=== PATIENT | male | born 1970 | race Caucasian/White ===

== ENCOUNTER 2020-01-13 20:14 | Inpatient (IN) | payer BC ==
[~2020-01-13] VITALS: Ht 175.3 cm; Wt 118.0 kg
[2020-01-13 20:32] LABS: BASO # 0.2 x10^3/uL (0.0-0.2); BASO % 1 % (0-3); EOS # 0.3 x10^3/uL (0.0-0.7); EOS % 2 % (0-3); HEMATOCRIT 41.5 % (39.0-53.0); HEMOGLOBIN 14.5 g/dL (13.0-17.5); LYMPH # 5.2 x10^3/uL (1.0-4.8); LYMPH % 31 % (24-48); MEAN CORPUSCULAR HEMOGLOBIN 33 pg (25-35); MEAN CORPUSCULAR HGB CONC 35 g/dL (31-37); MEAN CORPUSCULAR VOLUME 93 fL (79-100); MONO % 6 % (0-9); NEUT # 10.2 x10^3/uL (1.8-7.7); NEUT % 61 % (31-73); PLATELET COUNT 226 x10^3/uL (140-400); RED BLOOD COUNT 4.46 x10^6/uL (4.30-5.70); WHITE BLOOD COUNT 16.8 x10^3/uL (4.0-11.0)
--- NOTE | 2020-01-13 20:32 | EKG ---
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
[2020-01-13 20:42] LABS: CALCIUM 8.3 mg/dL (8.5-10.1); CREATININE 1.4 mg/dL (0.7-1.3); GFR 54.3; POTASSIUM 3.6 mmol/L (3.5-5.1)
[2020-01-13 20:43] LABS: BILIRUBIN,URINE NEGATIVE (NEG); CLARITY,URINE CLEAR; COLOR,URINE YELLOW; NITRITE,URINE NEGATIVE (NEG); PH,URINE 5.5 (<5.0-8.0); PROTEIN,URINE NEGATIVE (NEG-TRACE); UROBILINOGEN,URINE 0.2 mg/dL (0.2 mg/dL)
--- NOTE | 2020-01-13 20:46 | PHYS DOC ---
General Adult EDM: Chief Complaint: CHEST PAIN HPI: HPI: Patient is a 49 year old male who presents with complaint of chest discomfort that started at about 7 PM. Patient states that initially pain was a 5 out of 10 and radiated across his entire chest. He states the pain was like tightness. He states that initially he had some nausea associated with the chest pain but currently has no nausea. Patient was given 4 baby aspirin and 3 sublingual nitroglycerin by EMS and currently his pain is a 3 out of 10. Patient states that nothing worsened or improved the pain other than nitroglycerin.[] Review of Systems: Review of Systems: Constitutional: Denies fever or chills. [] Respiratory: Denies cough or shortness of breath. [] Cardiovascular: Complains of chest pain. [] GI: Denies abdominal pain, vomiting or diarrhea. [] Neurologic: Denies headache, focal weakness or sensory changes. [] A full 10 point review of systems has been reviewed and is otherwise negative. Heart Score: HEART Score for Chest Pain: HEART Score for Chest Pain Response (Comments) Value History Moderately Suspicious 1 ECG Normal 0 Age >45 - < 65 1 Risk Factors 1 or 2 Risk Factors 1 Troponin >3 x Normal Limit 2 Total 5 Risk Factors: Risk Factors: DM, Current or recent (<one month) smoker, HTN, HLP, family history of CAD, obesity. Risk Scores: Score 0 - 3: 2.5% MACE over next 6 weeks - Discharge Home Score 4 - 6: 20.3% MACE over next 6 weeks - Admit for Clinical Observation Score 7 - 10: 72.7% MACE over next 6 weeks - Early Invasive Strategies Allergies: Allergies: Allergies Coded Allergies Type Severity Reaction Last Updated Verified No Known Drug Allergies 01/13/20 No Physical Exam: PE: Constitutional: Well developed, well nourished, no acute distress, non-toxic appearance. [] HENT: Normocephalic, atraumatic, bilateral external ears normal, oropharynx moist, no oral exudates, nose normal. [] Eyes: PERRLA, EOMI, conjunctiva normal, no discharge. [] Neck: Normal range of motion, no tenderness, supple, no stridor. [] Cardiovascular: Regular rate and rhythm[] Lungs & Thorax: Bilateral breath sounds clear to auscultation [] Abdomen: Bowel sounds normal, soft, no tenderness. [] Skin: Warm, dry, no erythema, no rash. [] Extremities: No tenderness, no cyanosis, no clubbing, ROM intact, no edema. [] Neurologic: Alert and oriented X 3, no focal deficits noted. [] EKG: EKG: EKG demonstrates sinus rhythm with rate of 59.[] Radiology/Procedures: Radiology/Procedures: [] Impression: PROCEDURE: PORTABLE CHEST 1V Exam: Chest one view INDICATION: Chest pain TECHNIQUE: Frontal view of the chest Comparisons: None FINDINGS: The cardiomediastinal silhouette and pulmonary vessels are within normal limits. Strandy opacities at the lung bases bilaterally. No pleural effusion. IMPRESSION: Strandy bibasilar opacities may relate to atelectasis versus developing infectious process. Electronically signed by: Destiny Machado MD (01/13/2020 8:53 PM) [id number] Course & Med Decision Making: Course & Med Decision Making Pertinent Labs and Imaging studies reviewed. (See chart for details) Moved to room upon arrival was evaluated by ER medical staff after which an IV was established and blood work was drawn. Patient's initial cardiac workup had returned unremarkable with troponin less than 0.017. A 3 or repeat troponin was completed and did return elevated at 0.184. Findings reviewed with patient. Patient initiated on heparin protocol and patient admitted under hospitalist service with consultation of cardiology. Upon completion of initial workup, patient's chest pain noted to be 1 out of 10. Upon reviewing second troponin with patient, patient continues to be chest pain-free. Dragon Disclaimer: Dragon Disclaimer: This electronic medical record was generated, in whole or in part, using a voice recognition dictation system. Departure Departure Impression: Primary Impression: NSTEMI (non-ST elevated myocardial infarction) Disposition: ADMITTED INPATIENT Admitting Physician: COLEMAN Condition: IMPROVED BERRY CHIN Jr. DO Jan 13, 2020 20:46
[2020-01-13 20:48] LABS: ALBUMIN 3.4 g/dL (3.4-5.0); ALBUMIN/GLOBULIN RATIO 1.1 (1.0-1.7); MAGNESIUM 1.8 mg/dL (1.8-2.4); TOTAL BILIRUBIN 0.4 mg/dL (0.2-1.0); TOTAL PROTEIN 6.6 g/dL (6.4-8.2)
[2020-01-13 20:49] LABS: BACTERIA,URINE 0 /HPF (0-FEW); HYALINE CASTS, URINE FEW /HPF; RBC,URINE 0 /HPF (0-2); WBC,URINE 0 /HPF (0-4)
--- NOTE | 2020-01-13 20:56 | RAD ---
Exam: Chest one view INDICATION: Chest pain TECHNIQUE: Frontal view of the chest Comparisons: None FINDINGS: The cardiomediastinal silhouette and pulmonary vessels are within normal limits. Strandy opacities at the lung bases bilaterally. No pleural effusion. IMPRESSION: Strandy bibasilar opacities may relate to atelectasis versus developing infectious process. Electronically signed by: Destiny Machado MD (01/13/2020 8:53 PM) [id number]
[2020-01-14] VITALS (7 sets, daily range): BP systolic 97–131; BP diastolic 70–90
[2020-01-14] MEDS ORDERED: ONDANSETRON PF 4 MG/2 ML VIAL. IV PRN ×2 (00:30→13:00)
[2020-01-14] MEDS ORDERED: HEPARIN for IV BOLUS 10,000 UNIT/10 ML VIAL. IV PRN (00:30)
[2020-01-14] MEDS ORDERED: NITROGLYCERIN SUBLINGUAL 0.4 MG BOTTLE OF 25. SL PRN (00:30)
[2020-01-14] MEDS ORDERED: MORPHINE SULFATE 4 MG/ML VIAL. IV PRN (00:30)
[2020-01-14 00:32] LABS: BARBITURATES NEG (NEG); BENZODIAZEPINES NEG (NEG); CANNABINOIDS POS (NEG); COCAINE NEG (NEG); METHADONE NEG (NEG); OPIATES NEG (NEG); PHENCYCLIDINE NEG (NEG)
[2020-01-14 00:33] LABS: AMPHETAMINE/METHAMPHETAMINE NEG (NEG)
[2020-01-14] MEDS ORDERED: HEPARIN for IV BOLUS 10,000 UNIT/10 ML VIAL. IV ONE (00:45)
[2020-01-14 00:49] LABS: PROTHROMBIN TIME PATIENT 12.9 SEC (11.7-14.0)
[2020-01-14] MEDS: HEPARIN 25,000UTS/250ML PREMIX 250 ML IV PRN ×2 (01:25→20:38)
--- NOTE | 2020-01-14 05:47 | NUR ---
Pt was admitted to the unit from ER with dx of NSTEMI. Pt is A/Ox4, on RA, up adlib, SR/SB on telemetry and tolerating well. Pt described mediastinal chest pain and radiated across his chest. Pt had no c/o of pain at time of admission, heparin and NS ordered and initiated. Original troponin was negative, second 0.184, third 9.643. Pt is non symptomatic, however had run of vtach @0430, pt in bed resting. Will continue to monitor for status changes, bed in low/ locked position, call light within reach.
[2020-01-14] MEDS: IV NORMAL SALINE 1000ML BAG 1,000 ML IV SCH ×3 (06:12→21:31)
[2020-01-14] MEDS ORDERED: LEVO137T2 PO (07:13)
--- NOTE | 2020-01-14 08:56 | PDOC2 ---
CARDIOLOGY CONSULT NOTE CHIEF COMPLAINT: Chest pain HPI: Pleasant 49 y.o man presenting with chest pain since last night. He has been in his usual state of health over the last several weeks. 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 He was working on his car last night and had diffuse chest pain and called 911. He also had a headache. No associated nausea/dyspnea. No syncope. He has had some palpitations. Upon ER arrival BP and HR stable. Given asa and NTG. EKG not acute stemi but diffuse ST/T changes. Currently w/o chest pain but troponin uptrending to 18. PMHX: Hypothyroidism Hyperlipidemia SOCHX: +marijuana. lives with mother. Not . FAMHX: NC CURRENT MEDS: Current Medications Medications (Trade) Dose Ordered Sig/Alexandru Route PRN Reason Start Time Stop Time Status Last Admin Dose Admin Ondansetron HCl (Zofran) 4 mg PRN Q8HRS PRN IV NAUSEA/VOMITING 01/14/20 00:30 01/15/20 00:29 01/14/20 01:39 Sodium Chloride 1,000 ml @ 125 mls/hr Q8H IV 01/14/20 00:30 01/15/20 00:29 01/14/20 06:12 Heparin Sodium (Porcine) (Heparin Sodium) 4,000 unit 1X ONCE IV 01/14/20 00:45 01/14/20 00:46 DC 01/14/20 01:24 Heparin Sodium/ Dextrose 250 ml @ 0 mls/hr CONT PRN IV PER PROTOCOL 01/14/20 00:45 01/14/20 01:25 ALLERGIES: Allergies Coded Allergies Type Severity Reaction Last Updated Verified No Known Drug Allergies 01/13/20 No ROS: negative for 07/11 systems reviewed unless noted above in HPI PHYSICAL EXAM: Vital Signs/I&O: Vital Signs Date Time Temp Pulse Resp B/P (MAP) Pulse Ox O2 Delivery O2 Flow Rate FiO2 01/14/20 07:00 98.1 65 18 106/70 (82) 99 Room Air 98.1 I & O 01/13/20 01/13/20 01/14/20 15:00 23:00 07:00 Intake Total 68.8 ml Output Total 400 ml Balance -331.2 ml Physical Exam: GEN.: No apparent distress. Alert and oriented. HEENT: Head is normocephalic, atraumatic NECK: Supple. LUNGS: Clear to auscultation. HEART: RRR, S1, S2 present. Peripheral pulses intact ABDOMEN: Soft, nontender. Positive bowel sounds. EXTREMITIES: Without any cyanosis. NEUROLOGIC: Normal speech, normal tone PSYCHIATRIC: Normal affect, normal mood. SKIN: No ulcerations DIAGNOSTIC TESTING: EKG with SR non-specific st/t changes Trop 18 Otherwise labs wnl ASSESSMENT: 1. NSTEMI 2. Hyperlipidemia 3. Tobacco abuse PLAN: 1. Given symptoms I discussed r/b/a to cardiac cath with patient. He wishes to proceed with cath. Will arrange for this morning. Thanks GATO ALMONTE MD Jan 14, 2020 08:56
[2020-01-14] MEDS ORDERED: ACETAMINOPHEN 325 MG TABLET. PO PRN ×2 (09:00→13:00)
[2020-01-14] MEDS ORDERED: LIDOCAINE 1% PF 2 ML VIAL. ONE (09:44)
[2020-01-14] MEDS ORDERED: IODIXANOL 320 MG/ML 100 ML VIAL. ONE (09:44)
[2020-01-14] MEDS ORDERED: HEPARIN for ARTERIAL LINE 1,500 ML ONE (09:44)
[2020-01-14] MEDS ORDERED: fentaNYL PF VIAL 100 MCG/2 ML VIAL ONE (10:06)
[2020-01-14] MEDS ORDERED: MIDAZOLAM HCL/PF 2 MG/2 ML VIAL. ONE (10:06)
[2020-01-14] MEDS ORDERED: VERAPAMIL 5 MG/2 ML VIAL. ONE (10:07)
[2020-01-14] MEDS ORDERED: NITROGLYCERIN 200 MCG/2 ML SYRINGE FOR CATH/VASC LAB. ONE (10:07)
[2020-01-14] MEDS ORDERED: HEPARIN for IV BOLUS 10,000 UNIT/10 ML VIAL. ONE (10:07)
[2020-01-14] MEDS ORDERED: MIDAZOLAM HCL/PF 2 MG/2 ML VIAL. IV ONE (10:15)
[2020-01-14] MEDS ORDERED: NITROGLYCERIN 200 MCG/2 ML SYRINGE FOR CATH/VASC LAB. IART ONE (10:15)
[2020-01-14] MEDS ORDERED: fentaNYL PF VIAL 100 MCG/2 ML VIAL IV ONE (10:15)
[2020-01-14] MEDS ORDERED: VERAPAMIL 5 MG/2 ML VIAL. IART ONE (10:15)
[2020-01-14] MEDS ORDERED: IODIXANOL 320 MG/ML 100 ML VIAL. IART ONE (10:15)
[2020-01-14] MEDS ORDERED: HEPARIN for IV BOLUS 10,000 UNIT/10 ML VIAL. IART ONE (10:15)
[2020-01-14] MEDS ORDERED: LIDOCAINE 1% PF 2 ML VIAL. INJ ONE (10:15)
[2020-01-14] MEDS ORDERED: ONDANSETRON PF 4 MG/2 ML VIAL. ONE (10:20)
[2020-01-14] MEDS ORDERED: TIROFIBAN 5MG -0.9% NS 100 ML IV ONE ×2 (11:08→11:20)
[2020-01-14] MEDS: TIROFIBAN 5MG -0.9% NS 100 ML IV PRN ×3 (11:15→20:39)
--- NOTE | 2020-01-14 12:15 | NUR ---
[facility]. Transfer team contacted at [phone], spoke with Samantha. Awaits Dr. Keene's order to transfer patient.
--- NOTE | 2020-01-14 12:42 | PDOC1 ---
History and Physical Date of Admission Date of Admission DATE: 01/14/20 TIME: 12:41 Identification/Chief Complaint Chief Complaint SEEN IN ER WITH UNSTABLE ANGINA, NSTEMI , 49 year old male who presents with complaint of chest discomfort that started at about 7 PM. Patient states that initially pain was a 5 out of 10 and radiated across his entire chest. He states the pain was like tightness. He states that initially he had some nausea associated with the chest pain but currently has no nausea. Patient was given 4 baby aspirin and 3 sublingual nitroglycerin, cath today C/W MULTI-VESSEL CAD Past Medical History Cardiovascular: Hyperlipidemia Past Surgical History Past Surgical History: Appendectomy Family History Family History: High Cholestrol, Hypertension Social History Smoke: <1 pack per day ALCOHOL: occassional Drugs: None Current Problem List Problem List Problems Medical Problems: (1) NSTEMI (non-ST elevated myocardial infarction) Status: Acute Current Medications Current Medications Current Medications Ondansetron HCl (Zofran) 4 mg PRN Q8HRS PRN IV NAUSEA/VOMITING Last administered on 01/14/20at 01:39; Start 01/14/20 at 00:30; Stop 01/15/20 at 00:29 Morphine Sulfate (Morphine Sulfate) 4 mg PRN Q2HR PRN IV PAIN; Start 01/14/20 at 00:30; Stop 01/15/20 at 00:29 Sodium Chloride 1,000 ml @ 125 mls/hr Q8H IV Last administered on 01/14/20at 06:12; Start 01/14/20 at 00:30; Stop 01/15/20 at 00:29 Nitroglycerin (Nitrostat) 0.4 mg PRN Q5MIN PRN SL CHEST PAIN; Start 01/14/20 at 00:30; Stop 01/15/20 at 00:29 Heparin Sodium (Porcine) (Heparin Sodium) 4,000 unit 1X ONCE IV Last administered on 01/14/20at 01:24; Start 01/14/20 at 00:45; Stop 01/14/20 at 00:46; Status DC Heparin Sodium/ Dextrose 250 ml @ 0 mls/hr CONT PRN IV PER PROTOCOL Last administered on 01/14/20at 01:25; Start 01/14/20 at 00:45 Heparin Sodium (Porcine) (Heparin Sodium) 2,750 unit PRN Q6HRS PRN IV FOR UFH LEVEL LESS THAN 0.2; Start 01/14/20 at 00:30 Atorvastatin Calcium (Lipitor) 40 mg QHS PO ; Start 01/14/20 at 21:00 Acetaminophen (Tylenol) 325 mg PRN Q6HRS PRN PO MILD PAIN / TEMP Last administered on 01/14/20at 09:03; Start 01/14/20 at 09:00 Iodixanol (Visipaque 320) 100 ml STK-MED ONCE .ROUTE ; Start 01/14/20 at 09:44; Stop 01/14/20 at 09:45; Status DC Lidocaine HCl (Xylocaine-Mpf 1% 2ml Vial) 2 ml STK-MED ONCE .ROUTE ; Start 01/14/20 at 09:44; Stop 01/14/20 at 09:45; Status DC Heparin Sodium/ Sodium Chloride 1,500 ml @ As Directed STK-MED ONCE .ROUTE ; Start 01/14/20 at 09:44; Stop 01/14/20 at 09:45; Status DC Fentanyl Citrate (Fentanyl 2ml Vial) 100 mcg STK-MED ONCE .ROUTE ; Start 01/14/20 at 10:06; Stop 01/14/20 at 10:07; Status DC Midazolam HCl (Versed) 2 mg STK-MED ONCE .ROUTE ; Start 01/14/20 at 10:06; Stop 01/14/20 at 10:07; Status DC Heparin Sodium (Porcine) (Heparin Sodium) 10,000 unit STK-MED ONCE .ROUTE ; Start 01/14/20 at 10:07; Stop 01/14/20 at 10:07; Status DC Verapamil HCl (Verapamil) 5 mg STK-MED ONCE .ROUTE ; Start 01/14/20 at 10:07; Stop 01/14/20 at 10:08; Status DC Nitroglycerin (Nitroglycerin) 200 mcg STK-MED ONCE .ROUTE ; Start 01/14/20 at 10:07; Stop 01/14/20 at 10:08; Status DC Nitroglycerin (Nitroglycerin) 200 mcg 1X ONCE IART Last administered on 01/14/20at 10:15; Start 01/14/20 at 10:15; Stop 01/14/20 at 10:17; Status DC Verapamil HCl (Verapamil) 2.5 mg 1X ONCE IART Last administered on 01/14/20at 10:15; Start 01/14/20 at 10:15; Stop 01/14/20 at 10:17; Status DC Heparin Sodium (Porcine) (Heparin Sodium) 2,500 unit 1X ONCE IART Last administered on 01/14/20at 10:15; Start 01/14/20 at 10:15; Stop 01/14/20 at 10:17; Status DC Heparin Sodium/ Sodium Chloride (HEPARIN for ARTERIAL LINE FLUSH) 1,000 unit 1X ONCE IART Last administered on 01/14/20at 10:15; Start 01/14/20 at 10:15; Stop 01/14/20 at 10:17; Status DC Heparin Sodium/ Sodium Chloride (HEPARIN for ARTERIAL LINE FLUSH) 1,000 unit 1X ONCE IART Last administered on 01/14/20at 10:15; Start 01/14/20 at 10:15; Stop 01/14/20 at 10:17; Status DC Midazolam HCl (Versed) 2 mg 1X ONCE IV Last administered on 01/14/20at 10:15; Start 01/14/20 at 10:15; Stop 01/14/20 at 10:17; Status DC Fentanyl Citrate (Fentanyl 2ml Vial) 100 mcg 1X ONCE IV Last administered on 01/14/20at 10:15; Start 01/14/20 at 10:15; Stop 01/14/20 at 10:17; Status DC Iodixanol (Visipaque 320) 100 ml 1X ONCE IART Last administered on 01/14/20at 10:15; Start 01/14/20 at 10:15; Stop 01/14/20 at 10:17; Status DC Lidocaine HCl (Xylocaine-Mpf 1% 2ml Vial) 2 ml 1X ONCE INJ Last administered on 01/14/20at 10:15; Start 01/14/20 at 10:15; Stop 01/14/20 at 10:17; Status DC Ondansetron HCl (Zofran) 4 mg STK-MED ONCE .ROUTE ; Start 01/14/20 at 10:20; Stop 01/14/20 at 10:20; Status DC Tirofiban/Sodium Chloride 100 ml @ 0 mls/hr CONT PRN IV PER PROTOCOL Last administered on 01/14/20at 11:15; Start 01/14/20 at 11:15; Stop 01/15/20 at 05:14 Tirofiban/Sodium Chloride 100 ml @ As Directed STK-MED ONCE IV ; Start 01/14/20 at 11:08; Stop 01/14/20 at 11:09; Status DC Tirofiban/Sodium Chloride 100 ml @ As Directed STK-MED ONCE IV ; Start 01/14/20 at 11:20; Stop 01/14/20 at 11:21; Status DC Active Scripts Active Reported Synthroid (Levothyroxine Sodium) 137 Mcg Tablet 1 Tab PO HS Allergies Allergies: Coded Allergies: No Known Drug Allergies (Unverified , 01/13/20) ROS Review of System 14 PT ROS OTHERWISE NEG General: No: Chills, Night Sweats, Fatigue, Malaise, Appetite, Other PSYCHOLOGICAL ROS: YES: Anxiety; No: Behavioral Disorder, Concentration difficultie, Decreased libido, Depression, Disorientation, Hallucinations, Hostility, Irritablity, Memory difficulties, Mood Swings, Obsessive thoughts, Physical abuse, Sexual abuse, Sleep disturbances, Suicidal ideation, Other Eyes: No Blurry vision, No Decreased vision, No Double vision, No Dry eyes, No Excessive tearing, No Eye Pain, No Itchy Eyes, No Loss of vision, No Photophobia, No Scotomata, No Uses contacts, No Uses glasses, No Other HEENT: No: Heacaches, Visual Changes, Hearing change, Nasal congestion, Nasal discharge, Oral lesions, Sinus pain, Sore Throat, Epistaxis, Sneezing, Snoring, Tinnitus, Vertigo, Vocal changes, Other ALLERGY AND IMMUNOLOGY: No: Hives, Insect Bite Sensitivity, Itchy/Watery Eyes, Nasal Congestion, Post Nasal Drip, Seasonal Allergies, Other Hematological and Lymphatic: No: Bleeding Problems, Blood Clots, Blood Transfusions, Brusing, Night Sweats, Pallor, Swollen Lymph Nodes, Other Respiratory: YES: Shortness of breath, SOB with excertion; No: Cough, Hemoptysis, Orthopnea, Pleuritic Pain, Sputum Changes, Stridor, Tachypnea, Wheezing, Other Cardiovascular: yes Chest Pain Genitourinary: No Dysuria, No Frequency, No Incontinence, No Hematuria, No Retention, No Discharge, No Urgency, No Pain, No Flank Pain, No Other, No , No , No , No , No , No , No Musculoskeletal: No Gait Disturbance, No Joint Pain, No Joint Stiffness, No Joint Swelling, No Muscle Pain, No Muscular Weakness, No Pain In:, No Swelling In:, No Other Neurological: No Behavorial Changes, No Bowel/Bladder ControlChng, No Confusion, No Dizziness, No Gait Disturbance, No Headaches, No Impaired Coord/balance, No Memory Loss, No Numbness/Tingling, No Seizures, No Speech Problems, No Tremors, No Visual Changes, No Weakness, No Other Skin: No Dry Skin, No Eczema, No Hair Changes, No Lumps, No Mole Changes, No Mottling, No Nail Changes, No Pruritus, No Rash, No Skin Lesion Changes, No Other, No Acne Physical Exam Physical Exam Physical Exam: PE: Constitutional: Well developed, well nourished, no acute distress, non-toxic appearance. [] HENT: Normocephalic, atraumatic, bilateral external ears normal, oropharynx moist, no oral exudates, nose normal. [] Eyes: PERRLA, EOMI, conjunctiva normal, no discharge. [] Neck: Normal range of motion, no tenderness, supple, no stridor. [] Cardiovascular: Regular rate and rhythm[] Lungs & Thorax: Bilateral breath sounds clear to auscultation [] Abdomen: Bowel sounds normal, soft, no tenderness. [] Skin: Warm, dry, no erythema, no rash. [] Extremities: No tenderness, no cyanosis, no clubbing, ROM intact, no edema. [] Neurologic: Alert and oriented X 3, no focal deficits noted. [] General: Alert, Oriented X3, Cooperative, No acute distress HEENT: Atraumatic, PERRLA, EOMI, Mucous membr. moist/pink Lungs: Clear to auscultation, Normal air movement Heart: RRR Abdomen: Normal bowel sounds, Soft, No tenderness, No hepatosplenomegaly Rectal Exam: not examined PELVIC: Examination not indicated Extremities: No cyanosis Neuro: Normal speech, Sensation intact, Cranial nerves 3-12 NL Psych/Mental Status: Mental status NL, Mood NL Vitals Vitals Vital Signs Date Time Temp Pulse Resp B/P (MAP) Pulse Ox O2 Delivery O2 Flow Rate FiO2 01/14/20 11:25 69 14 96 Room Air 01/14/20 10:15 2.0 01/14/20 07:00 98.1 106/70 (82) 98.1 Labs Labs Laboratory Tests Test 01/13/20 20:25 01/13/20 20:32 01/13/20 23:09 01/14/20 03:35 White Blood Count 16.8 x10^3/uL (4.0-11.0) Red Blood Count 4.46 x10^6/uL (4.30-5.70) Hemoglobin 14.5 g/dL (13.0-17.5) Hematocrit 41.5 % (39.0-53.0) Mean Corpuscular Volume 93 fL (79-100) Mean Corpuscular Hemoglobin 33 pg (25-35) Mean Corpuscular Hemoglobin Concent 35 g/dL (31-37) Red Cell Distribution Width 14.0 % (11.5-14.5) Platelet Count 226 x10^3/uL (140-400) Neutrophils (%) (Auto) 61 % (31-73) Lymphocytes (%) (Auto) 31 % (24-48) Monocytes (%) (Auto) 6 % (0-9) Eosinophils (%) (Auto) 2 % (0-3) Basophils (%) (Auto) 1 % (0-3) Neutrophils # (Auto) 10.2 x10^3/uL (1.8-7.7) Lymphocytes # (Auto) 5.2 x10^3/uL (1.0-4.8) Monocytes # (Auto) 1.0 x10^3/uL (0.0-1.1) Eosinophils # (Auto) 0.3 x10^3/uL (0.0-0.7) Basophils # (Auto) 0.2 x10^3/uL (0.0-0.2) Prothrombin Time 12.9 SEC (11.7-14.0) Prothromb Time International Ratio 1.0 (0.8-1.1) Activated Partial Thromboplast Time 30 SEC (24-38) Sodium Level 138 mmol/L (136-145) Potassium Level 3.6 mmol/L (3.5-5.1) Chloride Level 104 mmol/L (98-107) Carbon Dioxide Level 26 mmol/L (21-32) Anion Gap 8 (6-14) Blood Urea Nitrogen 13 mg/dL (8-26) Creatinine 1.4 mg/dL (0.7-1.3) Estimated GFR (Cockcroft-Gault) 54.3 BUN/Creatinine Ratio 9 (6-20) Glucose Level 199 mg/dL (70-99) Calcium Level 8.3 mg/dL (8.5-10.1) Magnesium Level 1.8 mg/dL (1.8-2.4) Total Bilirubin 0.4 mg/dL (0.2-1.0) Aspartate Amino Transf (AST/SGOT) 29 U/L (15-37) Alanine Aminotransferase (ALT/SGPT) 34 U/L (16-63) Alkaline Phosphatase 73 U/L (46-116) Troponin I Quantitative < 0.017 ng/mL (0.000-0.055) 0.184 ng/mL (0.000-0.055) 9.643 ng/mL (0.000-0.055) NP-Gdk-Z-Type Natriuretic Peptide 65 pg/mL (0-124) Total Protein 6.6 g/dL (6.4-8.2) Albumin 3.4 g/dL (3.4-5.0) Albumin/Globulin Ratio 1.1 (1.0-1.7) Urine Collection Type Unknown Urine Color Yellow Urine Clarity Clear Urine pH 5.5 (<5.0-8.0) Urine Specific [place] 1.020 (1.000-1.030) Urine Protein Negative mg/dL (NEG-TRACE) Urine Glucose (UA) Negative mg/dL (NEG) Urine Ketones (Stick) Negative mg/dL (NEG) Urine Blood Negative (NEG) Urine Nitrite Negative (NEG) Urine Bilirubin Negative (NEG) Urine Urobilinogen Dipstick 0.2 mg/dL (0.2 mg/dL) Urine Leukocyte Esterase Negative (NEG) Urine RBC 0 /HPF (0-2) Urine WBC 0 /HPF (0-4) Urine Bacteria 0 /HPF (0-FEW) Urine Hyaline Casts Few /HPF Urine Mucus Marked /LPF Urine Opiates Screen Neg (NEG) Urine Methadone Screen Neg (NEG) Urine Barbiturates Neg (NEG) Urine Phencyclidine Screen Neg (NEG) Urine Amphetamine/Methamphetamine Neg (NEG) Urine Benzodiazepines Screen Neg (NEG) Urine Cocaine Screen Neg (NEG) Urine Cannabinoids Screen Pos (NEG) Urine Ethyl Alcohol Neg (NEG) Test 01/14/20 07:20 Heparin Anti-Xa Act, Unfractionated 0.43 IU/mL (0.30-0.70) Troponin I Quantitative 18.022 ng/mL (0.000-0.055) Laboratory Tests Test 01/13/20 20:25 01/13/20 20:32 01/13/20 23:09 01/14/20 03:35 White Blood Count 16.8 x10^3/uL (4.0-11.0) Red Blood Count 4.46 x10^6/uL (4.30-5.70) Hemoglobin 14.5 g/dL (13.0-17.5) Hematocrit 41.5 % (39.0-53.0) Mean Corpuscular Volume 93 fL (79-100) Mean Corpuscular Hemoglobin 33 pg (25-35) Mean Corpuscular Hemoglobin Concent 35 g/dL (31-37) Red Cell Distribution Width 14.0 % (11.5-14.5) Platelet Count 226 x10^3/uL (140-400) Neutrophils (%) (Auto) 61 % (31-73) Lymphocytes (%) (Auto) 31 % (24-48) Monocytes (%) (Auto) 6 % (0-9) Eosinophils (%) (Auto) 2 % (0-3) Basophils (%) (Auto) 1 % (0-3) Neutrophils # (Auto) 10.2 x10^3/uL (1.8-7.7) Lymphocytes # (Auto) 5.2 x10^3/uL (1.0-4.8) Monocytes # (Auto) 1.0 x10^3/uL (0.0-1.1) Eosinophils # (Auto) 0.3 x10^3/uL (0.0-0.7) Basophils # (Auto) 0.2 x10^3/uL (0.0-0.2) Prothrombin Time 12.9 SEC (11.7-14.0) Prothromb Time International Ratio 1.0 (0.8-1.1) Activated Partial Thromboplast Time 30 SEC (24-38) Sodium Level 138 mmol/L (136-145) Potassium Level 3.6 mmol/L (3.5-5.1) Chloride Level 104 mmol/L (98-107) Carbon Dioxide Level 26 mmol/L (21-32) Anion Gap 8 (6-14) Blood Urea Nitrogen 13 mg/dL (8-26) Creatinine 1.4 mg/dL (0.7-1.3) Estimated GFR (Cockcroft-Gault) 54.3 BUN/Creatinine Ratio 9 (6-20) Glucose Level 199 mg/dL (70-99) Calcium Level 8.3 mg/dL (8.5-10.1) Magnesium Level 1.8 mg/dL (1.8-2.4) Total Bilirubin 0.4 mg/dL (0.2-1.0) Aspartate Amino Transf (AST/SGOT) 29 U/L (15-37) Alanine Aminotransferase (ALT/SGPT) 34 U/L (16-63) Alkaline Phosphatase 73 U/L (46-116) Troponin I Quantitative < 0.017 ng/mL (0.000-0.055) 0.184 ng/mL (0.000-0.055) 9.643 ng/mL (0.000-0.055) UI-Mst-F-Type Natriuretic Peptide 65 pg/mL (0-124) Total Protein 6.6 g/dL (6.4-8.2) Albumin 3.4 g/dL (3.4-5.0) Albumin/Globulin Ratio 1.1 (1.0-1.7) Urine Collection Type Unknown Urine Color Yellow Urine Clarity Clear Urine pH 5.5 (<5.0-8.0) Urine Specific [place] 1.020 (1.000-1.030) Urine Protein Negative mg/dL (NEG-TRACE) Urine Glucose (UA) Negative mg/dL (NEG) Urine Ketones (Stick) Negative mg/dL (NEG) Urine Blood Negative (NEG) Urine Nitrite Negative (NEG) Urine Bilirubin Negative (NEG) Urine Urobilinogen Dipstick 0.2 mg/dL (0.2 mg/dL) Urine Leukocyte Esterase Negative (NEG) Urine RBC 0 /HPF (0-2) Urine WBC 0 /HPF (0-4) Urine Bacteria 0 /HPF (0-FEW) Urine Hyaline Casts Few /HPF Urine Mucus Marked /LPF Urine Opiates Screen Neg (NEG) Urine Methadone Screen Neg (NEG) Urine Barbiturates Neg (NEG) Urine Phencyclidine Screen Neg (NEG) Urine Amphetamine/Methamphetamine Neg (NEG) Urine Benzodiazepines Screen Neg (NEG) Urine Cocaine Screen Neg (NEG) Urine Cannabinoids Screen Pos (NEG) Urine Ethyl Alcohol Neg (NEG) Test 01/14/20 07:20 Heparin Anti-Xa Act, Unfractionated 0.43 IU/mL (0.30-0.70) Troponin I Quantitative 18.022 ng/mL (0.000-0.055) VTE Prophylaxis Ordered VTE Prophylaxis Devices: No VTE Pharmacological Prophylaxi: Yes Assessment/Plan Assessment/Plan Impression: NSTEMI (non-ST elevated myocardial infarction) MORBID OBESITY TOBACCO ABUSE DISORDER ADMITTED [facility]VC BED CARDIOLOGY CONSULT EMERGENT CATH TODAY IV HEPARIN PLAN TRANSFER TO [facility] 34 MIN CC TIME REGINO KEEN MD Jan 14, 2020 12:42
[2020-01-14] MEDS ORDERED: guaiFENesin ORAL 200 MG/10 ML LIQUID. PO PRN (13:00)
[2020-01-14] MEDS ORDERED: cloNIDine HCL 0.1 MG TABLET PO PRN (13:00)
[2020-01-14] MEDS ORDERED: 0.9 % SODIUM CHLORIDE 10 ML DISP.SYRIN. IV PRN (13:00)
[2020-01-14] MEDS ORDERED: ALBUTEROL SULFATE 2.5 MG/3 ML NEBU. NEB PRN (13:00)
[2020-01-14] MEDS ORDERED: DOCUSATE SODIUM 100 MG CAPSULE. PO PRN (13:00)
[2020-01-14] MEDS ORDERED: MAG HYDROX/ALUMINUM HYD/SIMETH 30 ML ORAL.SUSP PO PRN (13:00)
--- NOTE | 2020-01-14 13:25 | CARD ---
MR#: [id number] Date of Study: 01/14/2020 Ordering Physician: GATO ALMONTE, Referring Physician: GATO ALMONTE, Tech: CRISSY FLORIAN APPROVED REPORT Technologist: CRISSY FLORIAN Nurse: FLORINDA VELÁSQUEZ Procedure(s) performed: Flouro Time: 3.2 min Dose: 93.47 Gycm2 Sedation time: 40 min Contrast: 75 mL Visipaque LHC, Coronary angiography, Left ventriculography HISTORY The patient is a 49 year-old male with a history of : tobacco history() , hypertension, dyslipidemia. INDICATION The indication(s) include : non-STEMI . [facility] Clinical Frailty Scale [facility] Clinical Frailty Scale: Managing Well Heart Failure Heart Failure: Yes If Yes, Newly Diagnosed: Yes If Yes, HF Type: Diastolic Systolic If Yes, NYHA Class: Class II PROCEDURE NARRATIVE INFORMED CONSENT: After explaining the risks and benefits of the procedure and alternatives, informed consent was obtained. The patient was brought electively to the cardiac catheterization lab. A timeout was performed confi rming the patient's name, date of , procedure, and site of procedure. All necessary personnel w ere wearing the appropriate protective equipment and radiation monitor devices. (See nursing notes for medications administered). ACCESS: The right wrist was sterilely prepped and draped in the usual fashion. The right wrist was infiltrat ed with 1 mL of 2% lidocaine for subcutaneous anesthesia. A 6 German Terumo glide sheath was inserte d into the right radial artery without difficulty. CORONARY ANGIOGRAPHY: Right and left coronary angiography was performed using a 6Fr TIG 4.0 catheter. Left ventricular en d diastolic pressure was obtained with a pigtail catheter and pullback was performed after left ventr iculography. All catheter exchanges and advancements were performed over a guidewire. CLOSURE: At case completion the right radial sheath was removed and a Terumo radial band was applied with 13 m l of air. COMPLICATIONS: The patient tolerated the procedure well and there were no immediate complications. FINDINGS: HEMODYNAMICS: LVEDP 13 mm Hg No gradient on LV to aortic pullback. AO: 128/78 LEFT VENTRICULOGRAM: EF 55% Anterobasal: Normal. Anterolateral: Normal Apical: Normal Diaphragmatic: Severe hypokinesis. Posterobasal: Severe hypokinesis. CORONARY ANGIOGRAPHY: LM is a large caliber vessel with normal angiographic appearance. LAD is a small to moderate sized vessel with a proximal 80% stenosis. Ramus is a moderate caliber vessel with a focal 70% stenosis. LCx is a large caliber non-dominant vessel with a mid 50% stenosis at the site of OM1 take-off. OM1 is a moderate caliber vessel with normal angiographic appearance. RCA is a large caliber dominant vessel with proximal to mid aneurysmal and ectasia noted with diffuse 50-95% stenosis from the proximal to distal segment. RPDA and RPL are moderate caliber vessels with normal angiographic appearance. Conclusion 1. Normal left sided filling pressures. 2. Mild LV systolic dysfunction. EF 50% 3. Severe three vessel coronary disease. Recommendations 1. Plan for referral to [facility] for CABG versus high risk PCI. 2. Continue heparin gtt and start Tirofiban gtt for RCA aneurysmal thrombus/disease burden. Signed by : Gato Almonte, Electronically Approved : 01/14/2020 13:24:56
--- NOTE | 2020-01-14 14:29 | NUR ---
[facility] requested patient to be tested for COVID19, and it is swabbed and sent to lab.
[2020-01-14] MEDS ORDERED: ASPIRIN CHEWABLE 81 MG TABLET. PO ONE (15:00)
[2020-01-14] MEDS: LORazepam 0.5 MG TABLET PO PRN (15:56)
[2020-01-14] MEDS ORDERED: LEVOTHYROXINE 137 MCG TABLET PO SCH (21:00)
[2020-01-14] MEDS ORDERED: ATORVASTATIN CALCIUM 40 MG TABLET. PO SCH (21:00)
[2020-01-15] MEDS: LORazepam 0.5 MG TABLET PO PRN ×2 (00:14→08:29)
[2020-01-15 01:16] LABS: HEMOGLOBIN 13.9 g/dL (13.0-17.5); RED BLOOD COUNT 4.36 x10^6/uL (4.30-5.70); RED CELL DISTRIBUTION WIDTH 14.7 % (11.5-14.5)
[2020-01-15] MEDS: TIROFIBAN 5MG -0.9% NS 100 ML IV PRN (01:28)
[2020-01-15 03:12] LABS: HEMOGLOBIN A1C 6.3 % (4.8-5.6)
[2020-01-15 03:35] VITALS: BP 131/92
[2020-01-15 07:00] VITALS: BP 138/101
[2020-01-15] MEDS ORDERED: ASPIRIN CHEWABLE 81 MG TABLET. PO SCH (08:00)
[2020-01-15] MEDS: HEPARIN 25,000UTS/250ML PREMIX 250 ML IV PRN (08:25)
[2020-01-15 10:38] VITALS: BP 150/98
--- NOTE | 2020-01-15 11:47 | PDOC ---
PROGRESS NOTES History of Present Illness History of Present Illness discharge dx Assessment/Plan Impression: NSTEMI (non-ST elevated myocardial infarction) MORBID OBESITY TOBACCO ABUSE DISORDER ADMITTED CVC BED CARDIOLOGY CONSULT EMERGENT CATH TODAY IV HEPARIN PLAN TRANSFER TO [facility] d/w isaiah BLANC COVID-19 SCREEN Prior to transfer was neg 01/14 Vitals Vitals Vital Signs Date Time Temp Pulse Resp B/P (MAP) Pulse Ox O2 Delivery O2 Flow Rate FiO2 01/15/20 10:38 98.3 77 18 150/98 (115) 96 Room Air 98.3 01/14/20 10:15 2.0 Physical Exam General: Alert, Oriented X3, Cooperative, No acute distress Heart: Regular rate, Normal S1 Lungs: Clear Abdomen: Normal bowel sounds, Soft, No tenderness, No hepatosplenomegaly Extremities: No clubbing, No cyanosis Skin: No rashes, No significant lesion Labs LABS Laboratory Tests Test 01/14/20 12:20 01/14/20 14:30 01/14/20 18:30 01/15/20 00:40 Heparin Anti-Xa Act, Unfractionated 0.24 IU/mL (0.30-0.70) 0.29 IU/mL (0.30-0.70) 1.08 IU/mL (0.30-0.70) Coronavirus (COVID-19)(PCR) See separate report White Blood Count 10.0 x10^3/uL (4.0-11.0) Red Blood Count 4.36 x10^6/uL (4.30-5.70) Hemoglobin 13.9 g/dL (13.0-17.5) Hematocrit 41.0 % (39.0-53.0) Mean Corpuscular Volume 94 fL (79-100) Mean Corpuscular Hemoglobin 32 pg (25-35) Mean Corpuscular Hemoglobin Concent 34 g/dL (31-37) Red Cell Distribution Width 14.7 % (11.5-14.5) Platelet Count 151 x10^3/uL (140-400) Test 01/15/20 06:12 Heparin Anti-Xa Act, Unfractionated 0.98 IU/mL (0.30-0.70) Assessment and Plan Assessmemt and Plan Problems Medical Problems: (1) NSTEMI (non-ST elevated myocardial infarction) Status: Acute Comment Review of Relevant I have reviewed the following items albert (where applicable) has been applied. Labs Laboratory Tests Test 01/13/20 20:25 01/13/20 20:32 01/13/20 23:09 01/14/20 03:35 White Blood Count 16.8 x10^3/uL (4.0-11.0) Red Blood Count 4.46 x10^6/uL (4.30-5.70) Hemoglobin 14.5 g/dL (13.0-17.5) Hematocrit 41.5 % (39.0-53.0) Mean Corpuscular Volume 93 fL (79-100) Mean Corpuscular Hemoglobin 33 pg (25-35) Mean Corpuscular Hemoglobin Concent 35 g/dL (31-37) Red Cell Distribution Width 14.0 % (11.5-14.5) Platelet Count 226 x10^3/uL (140-400) Neutrophils (%) (Auto) 61 % (31-73) Lymphocytes (%) (Auto) 31 % (24-48) Monocytes (%) (Auto) 6 % (0-9) Eosinophils (%) (Auto) 2 % (0-3) Basophils (%) (Auto) 1 % (0-3) Neutrophils # (Auto) 10.2 x10^3/uL (1.8-7.7) Lymphocytes # (Auto) 5.2 x10^3/uL (1.0-4.8) Monocytes # (Auto) 1.0 x10^3/uL (0.0-1.1) Eosinophils # (Auto) 0.3 x10^3/uL (0.0-0.7) Basophils # (Auto) 0.2 x10^3/uL (0.0-0.2) Prothrombin Time 12.9 SEC (11.7-14.0) Prothromb Time International Ratio 1.0 (0.8-1.1) Activated Partial Thromboplast Time 30 SEC (24-38) Sodium Level 138 mmol/L (136-145) Potassium Level 3.6 mmol/L (3.5-5.1) Chloride Level 104 mmol/L (98-107) Carbon Dioxide Level 26 mmol/L (21-32) Anion Gap 8 (6-14) Blood Urea Nitrogen 13 mg/dL (8-26) Creatinine 1.4 mg/dL (0.7-1.3) Estimated GFR (Cockcroft-Gault) 54.3 BUN/Creatinine Ratio 9 (6-20) Glucose Level 199 mg/dL (70-99) Calcium Level 8.3 mg/dL (8.5-10.1) Magnesium Level 1.8 mg/dL (1.8-2.4) Total Bilirubin 0.4 mg/dL (0.2-1.0) Aspartate Amino Transf (AST/SGOT) 29 U/L (15-37) Alanine Aminotransferase (ALT/SGPT) 34 U/L (16-63) Alkaline Phosphatase 73 U/L (46-116) Troponin I Quantitative < 0.017 ng/mL (0.000-0.055) 0.184 ng/mL (0.000-0.055) 9.643 ng/mL (0.000-0.055) DC-Omx-I-Type Natriuretic Peptide 65 pg/mL (0-124) Total Protein 6.6 g/dL (6.4-8.2) Albumin 3.4 g/dL (3.4-5.0) Albumin/Globulin Ratio 1.1 (1.0-1.7) Urine Collection Type Unknown Urine Color Yellow Urine Clarity Clear Urine pH 5.5 (<5.0-8.0) Urine Specific [place] 1.020 (1.000-1.030) Urine Protein Negative mg/dL (NEG-TRACE) Urine Glucose (UA) Negative mg/dL (NEG) Urine Ketones (Stick) Negative mg/dL (NEG) Urine Blood Negative (NEG) Urine Nitrite Negative (NEG) Urine Bilirubin Negative (NEG) Urine Urobilinogen Dipstick 0.2 mg/dL (0.2 mg/dL) Urine Leukocyte Esterase Negative (NEG) Urine RBC 0 /HPF (0-2) Urine WBC 0 /HPF (0-4) Urine Bacteria 0 /HPF (0-FEW) Urine Hyaline Casts Few /HPF Urine Mucus Marked /LPF Urine Opiates Screen Neg (NEG) Urine Methadone Screen Neg (NEG) Urine Barbiturates Neg (NEG) Urine Phencyclidine Screen Neg (NEG) Urine Amphetamine/Methamphetamine Neg (NEG) Urine Benzodiazepines Screen Neg (NEG) Urine Cocaine Screen Neg (NEG) Urine Cannabinoids Screen Pos (NEG) Urine Ethyl Alcohol Neg (NEG) Test 01/14/20 07:20 01/14/20 12:20 01/14/20 14:30 01/14/20 18:30 Heparin Anti-Xa Act, Unfractionated 0.43 IU/mL (0.30-0.70) 0.24 IU/mL (0.30-0.70) 0.29 IU/mL (0.30-0.70) Hemoglobin A1c 6.3 % (4.8-5.6) Troponin I Quantitative 18.022 ng/mL (0.000-0.055) Coronavirus (COVID-19)(PCR) See separate report Test 01/15/20 00:40 01/15/20 06:12 White Blood Count 10.0 x10^3/uL (4.0-11.0) Red Blood Count 4.36 x10^6/uL (4.30-5.70) Hemoglobin 13.9 g/dL (13.0-17.5) Hematocrit 41.0 % (39.0-53.0) Mean Corpuscular Volume 94 fL (79-100) Mean Corpuscular Hemoglobin 32 pg (25-35) Mean Corpuscular Hemoglobin Concent 34 g/dL (31-37) Red Cell Distribution Width 14.7 % (11.5-14.5) Platelet Count 151 x10^3/uL (140-400) Heparin Anti-Xa Act, Unfractionated 1.08 IU/mL (0.30-0.70) 0.98 IU/mL (0.30-0.70) Laboratory Tests Test 01/14/20 12:20 01/14/20 14:30 01/14/20 18:30 01/15/20 00:40 Heparin Anti-Xa Act, Unfractionated 0.24 IU/mL (0.30-0.70) 0.29 IU/mL (0.30-0.70) 1.08 IU/mL (0.30-0.70) Coronavirus (COVID-19)(PCR) See separate report White Blood Count 10.0 x10^3/uL (4.0-11.0) Red Blood Count 4.36 x10^6/uL (4.30-5.70) Hemoglobin 13.9 g/dL (13.0-17.5) Hematocrit 41.0 % (39.0-53.0) Mean Corpuscular Volume 94 fL (79-100) Mean Corpuscular Hemoglobin 32 pg (25-35) Mean Corpuscular Hemoglobin Concent 34 g/dL (31-37) Red Cell Distribution Width 14.7 % (11.5-14.5) Platelet Count 151 x10^3/uL (140-400) Test 01/15/20 06:12 Heparin Anti-Xa Act, Unfractionated 0.98 IU/mL (0.30-0.70) Medications Current Medications Ondansetron HCl (Zofran) 4 mg PRN Q8HRS PRN IV NAUSEA/VOMITING Last administered on 01/14/20at 01:39; Start 01/14/20 at 00:30; Stop 01/15/20 at 00:29; Status DC Morphine Sulfate (Morphine Sulfate) 4 mg PRN Q2HR PRN IV PAIN; Start 01/14/20 at 00:30; Stop 01/15/20 at 00:29; Status DC Sodium Chloride 1,000 ml @ 125 mls/hr Q8H IV Last administered on 01/14/20at 21:31; Start 01/14/20 at 00:30; Stop 01/15/20 at 00:29; Status DC Nitroglycerin (Nitrostat) 0.4 mg PRN Q5MIN PRN SL CHEST PAIN; Start 01/14/20 at 00:30; Stop 01/15/20 at 00:29; Status DC Heparin Sodium (Porcine) (Heparin Sodium) 4,000 unit 1X ONCE IV Last administered on 01/14/20at 01:24; Start 01/14/20 at 00:45; Stop 01/14/20 at 00:46; Status DC Heparin Sodium/ Dextrose 250 ml @ 0 mls/hr CONT PRN IV PER PROTOCOL Last administered on 01/15/20at 08:25; Start 01/14/20 at 00:45 Heparin Sodium (Porcine) (Heparin Sodium) 2,750 unit PRN Q6HRS PRN IV FOR UFH LEVEL LESS THAN 0.2; Start 01/14/20 at 00:30 Atorvastatin Calcium (Lipitor) 40 mg QHS PO Last administered on 01/14/20at 20:44; Start 01/14/20 at 21:00 Acetaminophen (Tylenol) 325 mg PRN Q6HRS PRN PO MILD PAIN / TEMP Last administered on 01/14/20at 09:03; Start 01/14/20 at 09:00; Stop 01/14/20 at 13:07; Status DC Iodixanol (Visipaque 320) 100 ml STK-MED ONCE .ROUTE ; Start 01/14/20 at 09:44; Stop 01/14/20 at 09:45; Status DC Lidocaine HCl (Xylocaine-Mpf 1% 2ml Vial) 2 ml STK-MED ONCE .ROUTE ; Start 01/14/20 at 09:44; Stop 01/14/20 at 09:45; Status DC Heparin Sodium/ Sodium Chloride 1,500 ml @ As Directed STK-MED ONCE .ROUTE ; Start 01/14/20 at 09:44; Stop 01/14/20 at 09:45; Status DC Fentanyl Citrate (Fentanyl 2ml Vial) 100 mcg STK-MED ONCE .ROUTE ; Start 01/14/20 at 10:06; Stop 01/14/20 at 10:07; Status DC Midazolam HCl (Versed) 2 mg STK-MED ONCE .ROUTE ; Start 01/14/20 at 10:06; Stop 01/14/20 at 10:07; Status DC Heparin Sodium (Porcine) (Heparin Sodium) 10,000 unit STK-MED ONCE .ROUTE ; Start 01/14/20 at 10:07; Stop 01/14/20 at 10:07; Status DC Verapamil HCl (Verapamil) 5 mg STK-MED ONCE .ROUTE ; Start 01/14/20 at 10:07; Stop 01/14/20 at 10:08; Status DC Nitroglycerin (Nitroglycerin) 200 mcg STK-MED ONCE .ROUTE ; Start 01/14/20 at 10:07; Stop 01/14/20 at 10:08; Status DC Nitroglycerin (Nitroglycerin) 200 mcg 1X ONCE IART Last administered on 01/14/20at 10:15; Start 01/14/20 at 10:15; Stop 01/14/20 at 10:17; Status DC Verapamil HCl (Verapamil) 2.5 mg 1X ONCE IART Last administered on 01/14/20at 10:15; Start 01/14/20 at 10:15; Stop 01/14/20 at 10:17; Status DC Heparin Sodium (Porcine) (Heparin Sodium) 2,500 unit 1X ONCE IART Last administered on 01/14/20at 10:15; Start 01/14/20 at 10:15; Stop 01/14/20 at 10:17; Status DC Heparin Sodium/ Sodium Chloride (HEPARIN for ARTERIAL LINE FLUSH) 1,000 unit 1X ONCE IART Last administered on 01/14/20at 10:15; Start 01/14/20 at 10:15; Stop 01/14/20 at 10:17; Status DC Heparin Sodium/ Sodium Chloride (HEPARIN for ARTERIAL LINE FLUSH) 1,000 unit 1X ONCE IART Last administered on 01/14/20at 10:15; Start 01/14/20 at 10:15; Stop 01/14/20 at 10:17; Status DC Midazolam HCl (Versed) 2 mg 1X ONCE IV Last administered on 01/14/20at 10:15; Start 01/14/20 at 10:15; Stop 01/14/20 at 10:17; Status DC Fentanyl Citrate (Fentanyl 2ml Vial) 100 mcg 1X ONCE IV Last administered on 01/14/20at 10:15; Start 01/14/20 at 10:15; Stop 01/14/20 at 10:17; Status DC Iodixanol (Visipaque 320) 100 ml 1X ONCE IART Last administered on 01/14/20at 10:15; Start 01/14/20 at 10:15; Stop 01/14/20 at 10:17; Status DC Lidocaine HCl (Xylocaine-Mpf 1% 2ml Vial) 2 ml 1X ONCE INJ Last administered on 01/14/20at 10:15; Start 01/14/20 at 10:15; Stop 01/14/20 at 10:17; Status DC Ondansetron HCl (Zofran) 4 mg STK-MED ONCE .ROUTE ; Start 01/14/20 at 10:20; Stop 01/14/20 at 10:20; Status DC Tirofiban/Sodium Chloride 100 ml @ 0 mls/hr CONT PRN IV PER PROTOCOL Last administered on 01/15/20at 01:28; Start 01/14/20 at 11:15; Stop 01/15/20 at 05:1 4; Status DC Tirofiban/Sodium Chloride 100 ml @ As Directed STK-MED ONCE IV ; Start 01/14/20 at 11:08; Stop 01/14/20 at 11:09; Status DC Tirofiban/Sodium Chloride 100 ml @ As Directed STK-MED ONCE IV ; Start 01/14/20 at 11:20; Stop 01/14/20 at 11:21; Status DC Sodium Chloride (Normal Saline Flush) 3 ml QSHIFT PRN IV AFTER MEDS AND BLOOD DRAWS; Start 01/14/20 at 13:00 Ondansetron HCl (Zofran) 4 mg PRN Q4HRS PRN IV NAUSEA/VOMITING; Start 01/14/20 at 13:00 Acetaminophen (Tylenol) 650 mg PRN Q4HRS PRN PO TEMP OVER 100.4F OR MILD PAIN; Start 01/14/20 at 13:00 Al Hydroxide/Mg Hydroxide (Mylanta Plus Xs) 30 ml PRN DAILY PRN PO HEARTBURN / GAS; Start 01/14/20 at 13:00 Clonidine HCl (Catapres) 0.1 mg PRN Q6HRS PRN PO SBP>160 OR DBP>90; Start 01/14/20 at 13:00 Docusate Sodium (Colace) 100 mg PRN BID PRN PO CONSTIPATION; Start 01/14/20 at 13:00 Albuterol Sulfate (Ventolin Neb Soln) 2.5 mg PRN Q4HRS PRN NEB SHORTNESS OF BREATH; Start 01/14/20 at 13:00 Guaifenesin (Robitussin) 200 mg PRN Q4HRS PRN PO COUGH; Start 01/14/20 at 13:00 Aspirin (Aspirin Chewable) 81 mg DAILYWBKFT PO Last administered on 01/15/20at 08:21; Start 01/15/20 at 08:00 Aspirin (Aspirin Chewable) 81 mg 1X ONCE PO Last administered on 01/14/20at 15:49; Start 01/14/20 at 15:00; Stop 01/14/20 at 15:01; Status DC Lorazepam (Ativan) 0.5 mg PRN Q8HRS PRN PO ANXIETY / AGITATION Last administered on 01/15/20at 08:29; Start 01/14/20 at 15:00 Levothyroxine Sodium (Synthroid) 137 mcg HS PO Last administered on 01/14/20at 20:44; Start 01/14/20 at 21:00 Active Scripts Active Reported Synthroid (Levothyroxine Sodium) 137 Mcg Tablet 1 Tab PO HS Vitals/I & O Vital Sign - Last 24 Hours 01/14/20 01/14/20 01/14/20 01/14/20 15:19 15:56 19:50 20:00 Temp 98.4 98.0 98.4 98.0 Pulse 72 76 Resp 18 18 B/P (MAP) 128/82 (97) 126/86 (99) Pulse Ox 95 96 97 O2 Delivery Room Air Room Air Room Air Room Air 01/14/20 01/15/20 01/15/20 01/15/20 23:50 03:35 07:00 08:00 Temp 97.9 98.0 98.0 97.9 98.0 98.0 Pulse 76 74 84 Resp 18 18 18 B/P (MAP) 121/84 (96) 131/92 (105) 138/101 (113) Pulse Ox 95 96 95 O2 Delivery Room Air Room Air Room Air Room Air 01/15/20 10:38 Temp 98.3 98.3 Pulse 77 Resp 18 B/P (MAP) 150/98 (115) Pulse Ox 96 O2 Delivery Room Air Intake and Output 01/14/20 01/14/20 01/15/20 15:00 23:00 07:00 Intake Total 120 ml 500 ml 743 ml Output Total 150 ml 300 ml 350 ml Balance -30 ml 200 ml 393 ml REGINO KEEN MD Jan 15, 2020 11:46
[2020-01-15] MEDS ORDERED: ANTI-COAG MONITOR BY PHARMACY. MC PRN (12:15)
--- NOTE | 2020-01-15 12:48 | PDOC ---
CARDIOLOGY PROGRESS NOTE SUBJECTIVE: No new events. No chest pain. Ambulating in the room. Finished 18 hour tirofiban infusion OBJECTIVE: Vital Signs/I&O: Vital Signs Date Time Temp Pulse Resp B/P (MAP) Pulse Ox O2 Delivery O2 Flow Rate FiO2 01/15/20 10:38 98.3 77 18 150/98 (115) 96 Room Air 98.3 01/14/20 10:15 2.0 I & O 01/14/20 01/14/20 01/15/20 15:00 23:00 07:00 Intake Total 120 ml 500 ml 743 ml Output Total 150 ml 300 ml 350 ml Balance -30 ml 200 ml 393 ml Objective: a/o x 3. NAD no edema. R wrist access site is c/d/i CURRENT MEDICATIONS: asa, atorvastatin, hep gtt DIAGNOSTIC TESTING: labs reviewed. Labs: Laboratory Tests 01/15/20 00:40 Laboratory Tests Test 01/14/20 14:30 01/14/20 18:30 01/15/20 00:40 01/15/20 06:12 Coronavirus (COVID-19)(PCR) See separate report Heparin Anti-Xa Act, Unfractionated 0.29 IU/mL (0.30-0.70) L 1.08 IU/mL (0.30-0.70) H 0.98 IU/mL (0.30-0.70) H White Blood Count 10.0 x10^3/uL (4.0-11.0) Red Blood Count 4.36 x10^6/uL (4.30-5.70) Hemoglobin 13.9 g/dL (13.0-17.5) Hematocrit 41.0 % (39.0-53.0) Mean Corpuscular Volume 94 fL (79-100) Mean Corpuscular Hemoglobin 32 pg (25-35) Mean Corpuscular Hemoglobin Concent 34 g/dL (31-37) Red Cell Distribution Width 14.7 % (11.5-14.5) H Platelet Count 151 x10^3/uL (140-400) ASSESSMENT: 1. NSTEMI, 3V CAD 2. Mild LV dysfunction. Ef 50% PLAN: 1. Continue present meds. Awaiting transfer to for evaluation of CABG. Thanks GATO ALMONTE MD Jan 15, 2020 12:48
[2020-01-15] MEDS ORDERED: ASPI81TA50 PO (12:56)
[2020-01-15] MEDS ORDERED: ATOR40TA59 PO (13:03)
--- NOTE | 2020-01-15 13:09 | PDOC3 ---
Discharge Summary Date of Admission: Jan 14, 2020 Date of Discharge: Jan 15, 2020 Follow-Up: 1-2 days Admitting Diagnosis comment: discharge dx Assessment/Plan Impression: NSTEMI (non-ST elevated myocardial infarction) MORBID OBESITY TOBACCO ABUSE DISORDER ADMITTED CVC BED CARDIOLOGY CONSULT EMERGENT CATH 01/13 IV HEPARIN PLAN TRANSFER TO [facility] d/w isaiah BLANC COVID-19 SCREEN Prior to transfer was neg 01/14 Vitals Vitals Vital Signs Date Time Temp Pulse Resp B/P (MAP) Pulse Ox O2 Delivery O2 Flow Rate FiO2 01/15/20 10:38 98.3 77 18 150/98 (115) 96 Room Air 98.3 01/14/20 10:15 2.0 Physical Exam General: Alert, Oriented X3, Cooperative, No acute distress Heart: Regular rate, Normal S1 Lungs: Clear Abdomen: Normal bowel sounds, Soft, No tenderness, No hepatosplenomegaly Extremities: No clubbing, No cyanosis Skin: No rashes, No significant lesion FINAL DIAGNOSIS Problems Medical Problems: (1) NSTEMI (non-ST elevated myocardial infarction) Status: Acute Brief Hospital Course Mr. Villalba is a 49 old [sex] who presented with [ unstable angina] CONDITION AT DISCHARGE: Improved Discharge Medications Current Medications Ondansetron HCl (Zofran) 4 mg PRN Q8HRS PRN IV NAUSEA/VOMITING Last administered on 01/14/20at 01:39; Start 01/14/20 at 00:30; Stop 01/15/20 at 00:29; Status DC Morphine Sulfate (Morphine Sulfate) 4 mg PRN Q2HR PRN IV PAIN; Start 01/14/20 at 00:30; Stop 01/15/20 at 00:29; Status DC Sodium Chloride 1,000 ml @ 125 mls/hr Q8H IV Last administered on 01/14/20at 21:31; Start 01/14/20 at 00:30; Stop 01/15/20 at 00:29; Status DC Nitroglycerin (Nitrostat) 0.4 mg PRN Q5MIN PRN SL CHEST PAIN; Start 01/14/20 at 00:30; Stop 01/15/20 at 00:29; Status DC Heparin Sodium (Porcine) (Heparin Sodium) 4,000 unit 1X ONCE IV Last administered on 01/14/20at 01:24; Start 01/14/20 at 00:45; Stop 01/14/20 at 00:46; Status DC Heparin Sodium/ Dextrose 250 ml @ 0 mls/hr CONT PRN IV PER PROTOCOL Last administered on 01/15/20at 08:25; Start 01/14/20 at 00:45 Heparin Sodium (Porcine) (Heparin Sodium) 2,750 unit PRN Q6HRS PRN IV FOR UFH LEVEL LESS THAN 0.2; Start 01/14/20 at 00:30 Atorvastatin Calcium (Lipitor) 40 mg QHS PO Last administered on 01/14/20at 20:44; Start 01/14/20 at 21:00 Acetaminophen (Tylenol) 325 mg PRN Q6HRS PRN PO MILD PAIN / TEMP Last administered on 01/14/20at 09:03; Start 01/14/20 at 09:00; Stop 01/14/20 at 13:07; Status DC Iodixanol (Visipaque 320) 100 ml STK-MED ONCE .ROUTE ; Start 01/14/20 at 09:44; Stop 01/14/20 at 09:45; Status DC Lidocaine HCl (Xylocaine-Mpf 1% 2ml Vial) 2 ml STK-MED ONCE .ROUTE ; Start 01/14/20 at 09:44; Stop 01/14/20 at 09:45; Status DC Heparin Sodium/ Sodium Chloride 1,500 ml @ As Directed STK-MED ONCE .ROUTE ; Start 01/14/20 at 09:44; Stop 01/14/20 at 09:45; Status DC Fentanyl Citrate (Fentanyl 2ml Vial) 100 mcg STK-MED ONCE .ROUTE ; Start 01/14/20 at 10:06; Stop 01/14/20 at 10:07; Status DC Midazolam HCl (Versed) 2 mg STK-MED ONCE .ROUTE ; Start 01/14/20 at 10:06; Stop 01/14/20 at 10:07; Status DC Heparin Sodium (Porcine) (Heparin Sodium) 10,000 unit STK-MED ONCE .ROUTE ; Start 01/14/20 at 10:07; Stop 01/14/20 at 10:07; Status DC Verapamil HCl (Verapamil) 5 mg STK-MED ONCE .ROUTE ; Start 4/18/20 at 10:07; Stop 01/14/20 at 10:08; Status DC Nitroglycerin (Nitroglycerin) 200 mcg STK-MED ONCE .ROUTE ; Start 01/14/20 at 10:07; Stop 01/14/20 at 10:08; Status DC Nitroglycerin (Nitroglycerin) 200 mcg 1X ONCE IART Last administered on 01/14/20at 10:15; Start 01/14/20 at 10:15; Stop 01/14/20 at 10:17; Status DC Verapamil HCl (Verapamil) 2.5 mg 1X ONCE IART Last administered on 01/14/20at 10:15; Start 01/14/20 at 10:15; Stop 01/14/20 at 10:17; Status DC Heparin Sodium (Porcine) (Heparin Sodium) 2,500 unit 1X ONCE IART Last administered on 01/14/20at 10:15; Start 01/14/20 at 10:15; Stop 01/14/20 at 10:17; Status DC Heparin Sodium/ Sodium Chloride (HEPARIN for ARTERIAL LINE FLUSH) 1,000 unit 1X ONCE IART Last administered on 01/14/20at 10:15; Start 01/14/20 at 10:15; Stop 01/14/20 at 10:17; Status DC Heparin Sodium/ Sodium Chloride (HEPARIN for ARTERIAL LINE FLUSH) 1,000 unit 1X ONCE IART Last administered on 01/14/20at 10:15; Start 01/14/20 at 10:15; Stop 01/14/20 at 10:17; Status DC Midazolam HCl (Versed) 2 mg 1X ONCE IV Last administered on 01/14/20at 10:15; Start 01/14/20 at 10:15; Stop 01/14/20 at 10:17; Status DC Fentanyl Citrate (Fentanyl 2ml Vial) 100 mcg 1X ONCE IV Last administered on 01/14/20at 10:15; Start 01/14/20 at 10:15; Stop 01/14/20 at 10:17; Status DC Iodixanol (Visipaque 320) 100 ml 1X ONCE IART Last administered on 01/14/20at 10:15; Start 01/14/20 at 10:15; Stop 01/14/20 at 10:17; Status DC Lidocaine HCl (Xylocaine-Mpf 1% 2ml Vial) 2 ml 1X ONCE INJ Last administered on 01/14/20at 10:15; Start 01/14/20 at 10:15; Stop 01/14/20 at 10:17; Status DC Ondansetron HCl (Zofran) 4 mg STK-MED ONCE .ROUTE ; Start 01/14/20 at 10:20; Stop 01/14/20 at 10:20; Status DC Tirofiban/Sodium Chloride 100 ml @ 0 mls/hr CONT PRN IV PER PROTOCOL Last administered on 01/15/20at 01:28; Start 01/14/20 at 11:15; Stop 01/15/20 at 05 :14; Status DC Tirofiban/Sodium Chloride 100 ml @ As Directed STK-MED ONCE IV ; Start 01/14/20 at 11:08; Stop 01/14/20 at 11:09; Status DC Tirofiban/Sodium Chloride 100 ml @ As Directed STK-MED ONCE IV ; Start 01/14/20 at 11:20; Stop 01/14/20 at 11:21; Status DC Sodium Chloride (Normal Saline Flush) 3 ml QSHIFT PRN IV AFTER MEDS AND BLOOD DRAWS; Start 01/14/20 at 13:00 Ondansetron HCl (Zofran) 4 mg PRN Q4HRS PRN IV NAUSEA/VOMITING; Start 01/14/20 at 13:00 Acetaminophen (Tylenol) 650 mg PRN Q4HRS PRN PO TEMP OVER 100.4F OR MILD PAIN; Start 01/14/20 at 13:00 Al Hydroxide/Mg Hydroxide (Mylanta Plus Xs) 30 ml PRN DAILY PRN PO HEARTBURN / GAS; Start 01/14/20 at 13:00 Clonidine HCl (Catapres) 0.1 mg PRN Q6HRS PRN PO SBP>160 OR DBP>90; Start 01/14/20 at 13:00 Docusate Sodium (Colace) 100 mg PRN BID PRN PO CONSTIPATION; Start 01/14/20 at 13:00 Albuterol Sulfate (Ventolin Neb Soln) 2.5 mg PRN Q4HRS PRN NEB SHORTNESS OF BREATH; Start 01/14/20 at 13:00 Guaifenesin (Robitussin) 200 mg PRN Q4HRS PRN PO COUGH; Start 01/14/20 at 13:00 Aspirin (Aspirin Chewable) 81 mg DAILYWBKFT PO Last administered on 01/15/20at 08:21; Start 01/15/20 at 08:00 Aspirin (Aspirin Chewable) 81 mg 1X ONCE PO Last administered on 01/14/20at 15:49; Start 01/14/20 at 15:00; Stop 01/14/20 at 15:01; Status DC Lorazepam (Ativan) 0.5 mg PRN Q8HRS PRN PO ANXIETY / AGITATION Last administered on 01/15/20at 08:29; Start 01/14/20 at 15:00 Levothyroxine Sodium (Synthroid) 137 mcg HS PO Last administered on 01/14/20at 20:44; Start 01/14/20 at 21:00 Info (Anti-Coagulation Monitoring By Pharmacy) 1 each PRN DAILY PRN MC SEE COMMENTS Last administered on 01/15/20at 12:05; Start 01/15/20 at 12:15 Active Scripts Active Reported Atorvastatin Calcium 40 Mg Tablet 1 Tab PO QHS Aspir-Low (Aspirin) 81 Mg Tablet.dr 1 Tab PO DAILY Synthroid (Levothyroxine Sodium) 137 Mcg Tablet 1 Tab PO HS Vital Signs Vital Signs Date Time Temp Pulse Resp B/P (MAP) Pulse Ox O2 Delivery O2 Flow Rate FiO2 01/15/20 10:38 98.3 77 18 150/98 (115) 96 Room Air 98.3 01/14/20 10:15 2.0 Labs Laboratory Tests Test 01/13/20 20:25 01/13/20 20:32 01/13/20 23:09 01/14/20 03:35 White Blood Count 16.8 x10^3/uL (4.0-11.0) Red Blood Count 4.46 x10^6/uL (4.30-5.70) Hemoglobin 14.5 g/dL (13.0-17.5) Hematocrit 41.5 % (39.0-53.0) Mean Corpuscular Volume 93 fL (79-100) Mean Corpuscular Hemoglobin 33 pg (25-35) Mean Corpuscular Hemoglobin Concent 35 g/dL (31-37) Red Cell Distribution Width 14.0 % (11.5-14.5) Platelet Count 226 x10^3/uL (140-400) Neutrophils (%) (Auto) 61 % (31-73) Lymphocytes (%) (Auto) 31 % (24-48) Monocytes (%) (Auto) 6 % (0-9) Eosinophils (%) (Auto) 2 % (0-3) Basophils (%) (Auto) 1 % (0-3) Neutrophils # (Auto) 10.2 x10^3/uL (1.8-7.7) Lymphocytes # (Auto) 5.2 x10^3/uL (1.0-4.8) Monocytes # (Auto) 1.0 x10^3/uL (0.0-1.1) Eosinophils # (Auto) 0.3 x10^3/uL (0.0-0.7) Basophils # (Auto) 0.2 x10^3/uL (0.0-0.2) Prothrombin Time 12.9 SEC (11.7-14.0) Prothromb Time International Ratio 1.0 (0.8-1.1) Activated Partial Thromboplast Time 30 SEC (24-38) Sodium Level 138 mmol/L (136-145) Potassium Level 3.6 mmol/L (3.5-5.1) Chloride Level 104 mmol/L (98-107) Carbon Dioxide Level 26 mmol/L (21-32) Anion Gap 8 (6-14) Blood Urea Nitrogen 13 mg/dL (8-26) Creatinine 1.4 mg/dL (0.7-1.3) Estimated GFR (Cockcroft-Gault) 54.3 BUN/Creatinine Ratio 9 (6-20) Glucose Level 199 mg/dL (70-99) Calcium Level 8.3 mg/dL (8.5-10.1) Magnesium Level 1.8 mg/dL (1.8-2.4) Total Bilirubin 0.4 mg/dL (0.2-1.0) Aspartate Amino Transf (AST/SGOT) 29 U/L (15-37) Alanine Aminotransferase (ALT/SGPT) 34 U/L (16-63) Alkaline Phosphatase 73 U/L (46-116) Troponin I Quantitative < 0.017 ng/mL (0.000-0.055) 0.184 ng/mL (0.000-0.055) 9.643 ng/mL (0.000-0.055) HA-Mrl-Y-Type Natriuretic Peptide 65 pg/mL (0-124) Total Protein 6.6 g/dL (6.4-8.2) Albumin 3.4 g/dL (3.4-5.0) Albumin/Globulin Ratio 1.1 (1.0-1.7) Urine Collection Type Unknown Urine Color Yellow Urine Clarity Clear Urine pH 5.5 (<5.0-8.0) Urine Specific [place] 1.020 (1.000-1.030) Urine Protein Negative mg/dL (NEG-TRACE) Urine Glucose (UA) Negative mg/dL (NEG) Urine Ketones (Stick) Negative mg/dL (NEG) Urine Blood Negative (NEG) Urine Nitrite Negative (NEG) Urine Bilirubin Negative (NEG) Urine Urobilinogen Dipstick 0.2 mg/dL (0.2 mg/dL) Urine Leukocyte Esterase Negative (NEG) Urine RBC 0 /HPF (0-2) Urine WBC 0 /HPF (0-4) Urine Bacteria 0 /HPF (0-FEW) Urine Hyaline Casts Few /HPF Urine Mucus Marked /LPF Urine Opiates Screen Neg (NEG) Urine Methadone Screen Neg (NEG) Urine Barbiturates Neg (NEG) Urine Phencyclidine Screen Neg (NEG) Urine Amphetamine/Methamphetamine Neg (NEG) Urine Benzodiazepines Screen Neg (NEG) Urine Cocaine Screen Neg (NEG) Urine Cannabinoids Screen Pos (NEG) Urine Ethyl Alcohol Neg (NEG) Test 01/14/20 07:20 01/14/20 12:20 01/14/20 14:30 01/14/20 18:30 Heparin Anti-Xa Act, Unfractionated 0.43 IU/mL (0.30-0.70) 0.24 IU/mL (0.30-0.70) 0.29 IU/mL (0.30-0.70) Hemoglobin A1c 6.3 % (4.8-5.6) Troponin I Quantitative 18.022 ng/mL (0.000-0.055) Coronavirus (COVID-19)(PCR) See separate report Test 01/15/20 00:40 01/15/20 06:12 White Blood Count 10.0 x10^3/uL (4.0-11.0) Red Blood Count 4.36 x10^6/uL (4.30-5.70) Hemoglobin 13.9 g/dL (13.0-17.5) Hematocrit 41.0 % (39.0-53.0) Mean Corpuscular Volume 94 fL (79-100) Mean Corpuscular Hemoglobin 32 pg (25-35) Mean Corpuscular Hemoglobin Concent 34 g/dL (31-37) Red Cell Distribution Width 14.7 % (11.5-14.5) Platelet Count 151 x10^3/uL (140-400) Heparin Anti-Xa Act, Unfractionated 1.08 IU/mL (0.30-0.70) 0.98 IU/mL (0.30-0.70) Laboratory Tests Test 01/14/20 14:30 01/14/20 18:30 01/15/20 00:40 01/15/20 06:12 Coronavirus (COVID-19)(PCR) See separate report Heparin Anti-Xa Act, Unfractionated 0.29 IU/mL (0.30-0.70) 1.08 IU/mL (0.30-0.70) 0.98 IU/mL (0.30-0.70) White Blood Count 10.0 x10^3/uL (4.0-11.0) Red Blood Count 4.36 x10^6/uL (4.30-5.70) Hemoglobin 13.9 g/dL (13.0-17.5) Hematocrit 41.0 % (39.0-53.0) Mean Corpuscular Volume 94 fL (79-100) Mean Corpuscular Hemoglobin 32 pg (25-35) Mean Corpuscular Hemoglobin Concent 34 g/dL (31-37) Red Cell Distribution Width 14.7 % (11.5-14.5) Platelet Count 151 x10^3/uL (140-400) Allergies Allergies Coded Allergies Type Severity Reaction Last Updated Verified No Known Drug Allergies 01/13/20 No Disposition/Orders: D/C to Another Facility REGINO KEEN MD Jan 15, 2020 13:09
--- NOTE | 2020-01-15 13:30 | NUR ---
REPORT GIVEN TO CHRISTY RHODES. HEP. GTT RUNNING THRU LEFT PIV AT 19.8ML/HR. MONITOR REMOVED. AWAITS [facility] EMS.
--- NOTE | 2020-01-15 13:50 | NUR ---
Patient off unit to EMS entrance per wheelchair on to EMS stretcher.
== END 2020-01-15 13:35 | disposition short-term general hospital (02) | DRG 282 ==
LOC: ER 20:14 → 2 SOUTH 01-14 00:32
PROVIDERS: ADMIT Internal Medicine; ATTEND Internal Medicine
PROC: 4A023N7 Measurement of Cardiac Sampling and Pressure, Left Heart, Percutaneous Approach (ICD-10-PCS; principal; 2020-01-14)
PROC: B2111ZZ Fluoroscopy of Multiple Coronary Arteries using Low Osmolar Contrast (ICD-10-PCS; 2020-01-14)
PROC: B2151ZZ Fluoroscopy of Left Heart using Low Osmolar Contrast (ICD-10-PCS; 2020-01-14)
DX: I21.4 Non-ST elevation (NSTEMI) myocardial infarction (principal); E03.9 Hypothyroidism, unspecified; I25.110 Atherosclerotic heart disease of native coronary artery with unstable angina pectoris; E66.01 Morbid (severe) obesity due to excess calories; E78.5 Hyperlipidemia, unspecified; F17.210 Nicotine dependence, cigarettes, uncomplicated; Z82.49 Family history of ischemic heart disease and other diseases of the circulatory system; Z79.899 Other long term (current) drug therapy; Z68.38 Body mass index [BMI] 38.0-38.9, adult; Z03.818 Encounter for observation for suspected exposure to other biological agents ruled out
CPT/HCPCS: 36415; 71045; 80053; 80307; 81001; 83036; 83735; 83880; 84484; 85025; 85027; 85520; 85610; 85730; 87635; 93005; 93458; 94640; 99152; 99153; C1769; C1892; J1644; J2250; J2405; J3010; J3490; J7030; Q9967; G0378; J3246